=== PATIENT | female | born 1970 | race Caucasian/White ===

== ENCOUNTER 2019-01-10 21:10 | Emergency (ER) | payer SELFPAY ==
[~2019-01-10] VITALS: Ht 157.5 cm; Wt 99.8 kg
[2019-01-10 21:33] VITALS: BP 189/101
[2019-01-10] MEDS ORDERED: AMLO5TAB10 PO (21:39)
[2019-01-10] MEDS ORDERED: HYDROcodone/APAP 5/325MG 1 TAB TABLET PO ONE (22:15)
--- NOTE | 2019-01-10 23:00 | RAD ---
Right wrist x-rays 3 views HISTORY: Right wrist pain after fall. FINDINGS: No fracture or dislocation of the wrist. The soft tissues are unremarkable. 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 There is limited visualization of the distal carpal row and base of the metacarpal due to overlapping of the structures from positioning the patient's wrist in extension on the AP and oblique films which may decrease sensitivity to detect subtle pathology. IMPRESSION: No acute osseous injury of the right wrist. Right elbow AP lateral x-rays 2 views HISTORY: Right elbow pain after a fall. FINDINGS: Abnormal elevation of the fat pads consistent with a joint effusion. There is step-off of the articular cortex of the radial head suspicious for fracture. No fracture of the ulna or humerus at the elbow evident. No dislocation. IMPRESSION: Intra-articular radial head fracture. Electronically signed by: Rip oBo MD (01/10/2019 10:57 PM) [facility]
--- NOTE | 2019-01-10 23:00 | RAD ---
Right wrist x-rays 3 views HISTORY: Right wrist pain after fall. FINDINGS: No fracture or dislocation of the wrist. The soft tissues are unremarkable. 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 There is limited visualization of the distal carpal row and base of the metacarpal due to overlapping of the structures from positioning the patient's wrist in extension on the AP and oblique films which may decrease sensitivity to detect subtle pathology. IMPRESSION: No acute osseous injury of the right wrist. Right elbow AP lateral x-rays 2 views HISTORY: Right elbow pain after a fall. FINDINGS: Abnormal elevation of the fat pads consistent with a joint effusion. There is step-off of the articular cortex of the radial head suspicious for fracture. No fracture of the ulna or humerus at the elbow evident. No dislocation. IMPRESSION: Intra-articular radial head fracture. Electronically signed by: Rip Boo MD (01/10/2019 10:57 PM) [facility]
[2019-01-10] MEDS ORDERED: HYDR-3164 PO (23:43)
--- NOTE | 2019-01-10 23:43 | PHYS DOC ---
Past Medical History Past Medical History: Hypertension Past Surgical History: Tubal ligation Additional Past Surgical Histo: L KNEE, D&C Alcohol Use: Occasionally Drug Use: None Adult General Chief Complaint Chief Complaint: ELBOW PROBLEM HPI HPI Patient is a 48 year old female who presents with severe, right elbow pain after tripping on a curb and falling to the ground. Patient also injured her left wrist and left knee but those injuries are less concerning to her. She noticed increased swelling and tenderness immediately after falling. The pain is described as sharp, constant and nonradiating. She has taken one Excedrin for the pain which has not helped. She denies any trauma to the head or loss of consciousness. She has no other complaints at this time. Review of Systems Review of Systems Constitutional: Denies fever or chills Eyes: Denies redness or eye pain HENT: Denies nasal congestion or sore throat Respiratory: Denies cough or shortness of breath Cardiovascular: Denies chest pain or palpitations GI: Denies abdominal pain, nausea, or vomiting : Denies dysuria or hematuria Musculoskeletal: Severe right elbow pain. Mild left wrist, and knee pain with swelling and skin abrasions. Neurologic: Denies headache, focal weakness or sensory changes Complete systems were reviewed and found to be within normal limits, except as documented in this note. Current Medications Current Medications Current Medications Medications (Trade) Dose Ordered Sig/Mckayla Start Time Stop Time Status Last Admin Dose Admin Acetaminophen/ Hydrocodone Bitart (Lortab 5/325) 1 tab 1X ONCE 01/10/19 22:15 01/10/19 22:16 DC 01/10/19 22:48 1 TAB Allergies Allergies Allergies Coded Allergies Type Severity Reaction Last Updated Verified No Known Drug Allergies 01/10/19 No Physical Exam Physical Exam Constitutional: Well developed, well nourished, no acute distress, non-toxic appearance Eyes: PERRL, EOMI, conjunctiva normal, no discharge Abdomen: Soft, no tenderness Skin: several skin abrasions on the left wrist and left knee. Back: No tenderness, no CVA tenderness Extremities: Right elbow tenderness to palpation diffusely. Decreased right elbow ROM. sensation intact. Neurologic: Alert and oriented X 3, normal motor function, normal sensory function, no focal deficits noted Psychologic: Affect normal, judgement normal, mood normal Current Patient Data Vital Signs Vital Signs Date Time Temp Pulse Resp B/P (MAP) Pulse Ox O2 Delivery O2 Flow Rate FiO2 01/10/19 21:33 97.7 81 20 189/101 (130) 96 Room Air 97.7 EKG EKG [] Radiology/Procedures Radiology/Procedures PROCEDURE: ELBOW RIGHT 2V Right wrist x-rays 3 views HISTORY: Right wrist pain after fall. FINDINGS: No fracture or dislocation of the wrist. The soft tissues are unremarkable. 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 There is limited visualization of the distal carpal row and base of the metacarpal due to overlapping of the structures from positioning the patient's wrist in extension on the AP and oblique films which may decrease sensitivity to detect subtle pathology. IMPRESSION: No acute osseous injury of the right wrist. Right elbow AP lateral x-rays 2 views HISTORY: Right elbow pain after a fall. FINDINGS: Abnormal elevation of the fat pads consistent with a joint effusion. There is step-off of the articular cortex of the radial head suspicious for fracture. No fracture of the ulna or humerus at the elbow evident. No dislocation. IMPRESSION: Intra-articular radial head fracture. Electronically signed by: Ling Boo MD (01/10/2019 10:57 PM) [facility] DICTATED and SIGNED BY: LING BOO MD DATE: 01/10/19 2615 Course & Med Decision Making Course & Med Decision Making The patient is a 48-year-old female who presents with right elbow left wrist and left knee pain after falling while walking. X-rays of the right elbow and left wrist were obtained. Patient refused x-ray of the left knee. X-ray of the right elbow demonstrated a non-displaced, radial head fracture. The patient was placed in a splint and sling to stabilize the fracture. She was also counseled to follow up with orthopedics for potential casting. Patient prescribed 10 tabs of Hydrocodone PRN for pain control. Patient stable for discharge with outpatient follow-up with PCP. Discussed findings and plan with patient and family, who acknowledge understanding and agreement. Dragon Disclaimer Dragon Disclaimer This electronic medical record was generated, in whole or in part, using a voice recognition dictation system. Departure Departure Impression: Primary Impression: Radial head fracture, closed Disposition: 01 HOME, SELF-CARE Condition: STABLE Referrals: NO PCP (PCP) NIRANJAN MONROE MD Patient Instructions: Arm Sling Use, Rzkl-ak-Igzw, Cast or Splint Care, Glon-wi-Mogk, Radial Head Fracture, Pipi-mo-Bybn Scripts Hydrocodone/Apap 5-325 (NORCO 5-325 TABLET) 1 Each Tablet 0.5-1 TAB PO PRN Q6HRS PRN for PAIN, #10 TAB 0 Refills Prov: FRANSISCO GATICA DO 01/10/19 Problem Qualifiers Primary Impression: Radial head fracture, closed Encounter type: initial encounter Fracture alignment: nondisplaced L aterality: right Qualified Codes: S52.124A - Nondisplaced fracture of head of right radius, initial encounter for closed fracture FRANSISCO GATICA DO Jan 10, 2019 23:43
== END 2019-01-11 00:15 | disposition home or self-care (01) ==
LOC: ER 21:10
DX: S52.124A Nondisplaced fracture of head of right radius, initial encounter for closed fracture (principal); S60.811A Abrasion of right wrist, initial encounter; S80.212A Abrasion, left knee, initial encounter; Z98.51 Tubal ligation status; I10 Essential (primary) hypertension; W01.0XXA Fall on same level from slipping, tripping and stumbling without subsequent striking against object, initial encounter; Y93.89 Activity, other specified; Y92.89 Other specified places as the place of occurrence of the external cause; Y99.8 Other external cause status
CPT/HCPCS: 29105; 29125; 73070; 73110; 99284

== ENCOUNTER → 2019-02-11 | Outpatient (CLI) | payer SELFPAY ==
--- NOTE | 2019-02-10 14:10 | RAD ---
Exam performed: Right elbow 2 views. Indication: Right elbow follow-up fracture Date of Service: 02/10/2019. Comparison: X-ray right elbow from January 20, 2019 Three views right elbow findings: Healing intra-articular fracture radial head is redemonstrated with interval bridging callus. Improvement in joint effusion. No foreign body. Impression: 1. Intra-articular fracture radial head. No joint effusion is seen today. Electronically signed by: Miriam Stein MD (02/10/2019 2:07 PM) [facility]
[~2019-02-11] MED LIST: AMLO5TAB10 PO; HYDR-3164 PO
--- NOTE | 2019-02-11 09:57 | RAD ---
Exam performed: Right elbow 2 views. Indication: Right elbow follow-up fracture Date of Service: 02/10/2019. Comparison: X-ray right elbow from January 20, 2019 Three views right elbow findings: Healing intra-articular fracture radial head is redemonstrated with interval bridging callus. Improvement in joint effusion. No foreign body. Impression: 1. Intra-articular fracture radial head. No joint effusion is seen today. Electronically signed by: Miriam Stein MD (02/10/2019 2:07 PM) [facility]
== END | disposition home or self-care (01) ==
LOC: PMGORTHO 09:58
PROVIDERS: ATTEND Orthopaedic Surgery
DX: S52.121D Displaced fracture of head of right radius, subsequent encounter for closed fracture with routine healing (principal); X58.XXXD Exposure to other specified factors, subsequent encounter
CPT/HCPCS: 73070

== ENCOUNTER 2020-10-20 18:06 | Emergency (ER) | payer BC ==
[~2020-10-20] VITALS: Ht 154.9 cm; Wt 77.0 kg
[~2020-10-20 18:06] MED LIST changes: +AMLO-186 PO; -AMLO5TAB10 PO
[2020-10-20] MEDS ORDERED: IV NORMAL SALINE 1000ML BAG 1,000 ML IV ONE (19:15)
--- NOTE | 2020-10-20 19:40 | RAD ---
Exam: Chest one view INDICATION: Shaky TECHNIQUE: Frontal view of the chest Comparisons: None FINDINGS: The cardiomediastinal silhouette and pulmonary vessels are within normal limits. The lung and pleural spaces are clear. IMPRESSION: No acute cardiopulmonary process. Electronically signed by: Sobia Banegas MD (10/20/2020 7:37 PM) [facility]
[2020-10-20 19:48] LABS: BASO # 0.1 x10^3/uL (0.0-0.2); BASO % 1 % (0-3); EOS % 1 % (0-3); HEMATOCRIT 45.9 % (36.0-47.0); HEMOGLOBIN 15.8 g/dL (12.0-15.5); LYMPH % 42 % (24-48); MEAN CORPUSCULAR HEMOGLOBIN 36 pg (25-35); MEAN CORPUSCULAR HGB CONC 34 g/dL (31-37); MEAN CORPUSCULAR VOLUME 104 fL (79-100); MONO # 0.3 x10^3/uL (0.0-1.1); MONO % 7 % (0-9); NEUT # 2.4 x10^3/uL (1.8-7.7); NEUT % 49 % (31-73); PLATELET COUNT 179 x10^3/uL (140-400); RED CELL DISTRIBUTION WIDTH 12.8 % (11.5-14.5); WHITE BLOOD COUNT 4.8 x10^3/uL (4.0-11.0)
[2020-10-20 19:59] LABS: CALCIUM 8.6 mg/dL (8.5-10.1); CREATININE 0.5 mg/dL (0.6-1.0); GFR 131.1; POTASSIUM 4.1 mmol/L (3.5-5.1)
[2020-10-20 20:05] LABS: ALBUMIN 3.9 g/dL (3.4-5.0); ALBUMIN/GLOBULIN RATIO 1.1 (1.0-1.7); MAGNESIUM 2.2 mg/dL (1.8-2.4); TOTAL BILIRUBIN 0.2 mg/dL (0.2-1.0); TOTAL PROTEIN 7.3 g/dL (6.4-8.2)
--- NOTE | 2020-10-20 20:38 | PHYS DOC ---
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 Reports she drinks 2 alcoholic beverages every night, denies any tremors not drinking or history of seizures. Denies any fall or head injuries. Patient reports she cannot calm her thoughts and had left-sided chest pressure and tightness of her left hand on Sunday. Prior history of anxiety depression. Denies any suicidal homicidal ideations. Denies any IV drug use, cocaine or methamphetamine abuse. Review of Systems: Review of Systems: Constitutional: Denies fever or chills. [] Eyes: Denies change in visual acuity. [] HENT: Denies nasal congestion or sore throat. [] Respiratory: Denies cough or shortness of breath. [] Cardiovascular: Denies chest pain or edema. [] GI: Denies abdominal pain, nausea, vomiting, bloody stools or diarrhea. [] : Denies dysuria. [] Musculoskeletal: Denies back pain or joint pain. [] Integument: Denies rash. [] Neurologic: Denies headache, focal weakness or sensory changes. [] Endocrine: Denies polyuria or polydipsia. [] Lymphatic: Denies swollen glands. [] Psychiatric: Denies depression, suicidal or homicidal ideations Heart Score: C/O Chest Pain: No Risk Factors: Risk Factors: DM, Current or recent (<one month) smoker, HTN, HLP, family history of CAD, obesity. Risk Scores: Score 0 - 3: 2.5% MACE over next 6 weeks - Discharge Home Score 4 - 6: 20.3% MACE over next 6 weeks - Admit for Clinical Observation Score 7 - 10: 72.7% MACE over next 6 weeks - Early Invasive Strategies Current Medications: Current Medications Medications (Trade) Dose Ordered Sig/Mckayla Start Time Stop Time Status Last Admin Dose Admin Lorazepam (Ativan Inj) 1 mg 1X ONCE 10/20/20 20:00 10/20/20 20:01 DC 10/20/20 20:04 1 MG Sodium Chloride 1,000 ml @ 1,000 mls/hr 1X ONCE 10/20/20 19:15 10/20/20 20:14 DC 10/20/20 19:45 1,000 MLS/HR Allergies: Allergies: Allergies Coded Allergies Type Severity Reaction Last Updated Verified No Known Drug Allergies 01/10/19 No Physical Exam: PE: Constitutional: Well developed, well nourished, no acute distress, non-toxic appearance. HENT: Normocephalic, atraumatic, glassy/watery eyes, dry mucous membranes Eyes: EOMI, conjunctiva normal, no discharge. Neck: Normal range of motion, supple, Cardiovascular: S1/2 present, tachycardic on arrival Lungs & Thorax: Speaking in full sentences, bilateral equal chest rise, no tachypnea or increased work of breathing Abdomen: soft, no tenderness, Skin: Warm, dry, no erythema, no rash. [] Back: No midline tenderness, no CVA tenderness. [] Extremities: No tenderness, no cyanosis, no lower extremity edema Neurologic: Alert and oriented X 3, normal motor function, normal sensory function, no focal deficits noted. [] Psychologic: judgement normal, mood-emotional labile all goes from very anxious to tearful Current Patient Data: Labs: Laboratory Tests Test 10/20/20 19:30 White Blood Count 4.8 x10^3/uL (4.0-11.0) Red Blood Count 4.40 x10^6/uL (3.50-5.40) Hemoglobin 15.8 g/dL (12.0-15.5) H Hematocrit 45.9 % (36.0-47.0) Mean Corpuscular Volume 104 fL (79-100) H Mean Corpuscular Hemoglobin 36 pg (25-35) H Mean Corpuscular Hemoglobin Concent 34 g/dL (31-37) Red Cell Distribution Width 12.8 % (11.5-14.5) Platelet Count 179 x10^3/uL (140-400) Neutrophils (%) (Auto) 49 % (31-73) Lymphocytes (%) (Auto) 42 % (24-48) Monocytes (%) (Auto) 7 % (0-9) Eosinophils (%) (Auto) 1 % (0-3) Basophils (%) (Auto) 1 % (0-3) Neutrophils # (Auto) 2.4 x10^3/uL (1.8-7.7) Lymphocytes # (Auto) 2.0 x10^3/uL (1.0-4.8) Monocytes # (Auto) 0.3 x10^3/uL (0.0-1.1) Eosinophils # (Auto) 0.0 x10^3/uL (0.0-0.7) Basophils # (Auto) 0.1 x10^3/uL (0.0-0.2) Sodium Level 141 mmol/L (136-145) Potassium Level 4.1 mmol/L (3.5-5.1) Chloride Level 103 mmol/L (98-107) Carbon Dioxide Level 23 mmol/L (21-32) Anion Gap 15 (6-14) H Blood Urea Nitrogen 3 mg/dL (7-20) L Creatinine 0.5 mg/dL (0.6-1.0) L Estimated GFR (Cockcroft-Gault) 131.1 BUN/Creatinine Ratio 6 (6-20) Glucose Level 96 mg/dL (70-99) Calcium Level 8.6 mg/dL (8.5-10.1) Magnesium Level 2.2 mg/dL (1.8-2.4) Total Bilirubin 0.2 mg/dL (0.2-1.0) Aspartate Amino Transferase (AST) 77 U/L (15-37) H Alanine Aminotransferase (ALT) 69 U/L (14-59) H Alkaline Phosphatase 87 U/L (46-116) Total Protein 7.3 g/dL (6.4-8.2) Albumin 3.9 g/dL (3.4-5.0) Albumin/Globulin Ratio 1.1 (1.0-1.7) Lipase 177 U/L (73-393) Ethyl Alcohol Level 251 mg/dL (0-10) H Laboratory Tests 10/20/20 19:30 Laboratory Tests 10/20/20 19:30 Vital Signs: Vital Signs Date Time Temp Pulse Resp B/P (MAP) Pulse Ox O2 Delivery O2 Flow Rate FiO2 10/20/20 19:39 85 18 154/76 (102) 97 Room Air 10/20/20 19:05 98.6 98.6 EKG: EKG: Sinus rhythm 85 bpm, no axis deviation, normal intervals, T wave inversion V2 through V3, no ST elevations or ST depressions Radiology/Procedures: Radiology/Procedures: IMAGING REPORT Signed PATIENT: GEOFFREY QUACH ACCOUNT: [id number] : 1970 LOCATION: ER AGE: 49 SEX: F EXAM STATUS: REG ER ORD. PHYSICIAN: AUSTIN AREVALO DO REASON: shaky PROCEDURE: CHEST AP ONLY Exam: Chest one view INDICATION: Shaky TECHNIQUE: Frontal view of the chest Comparisons: None FINDINGS: The cardiomediastinal silhouette and pulmonary vessels are within normal limits. The lung and pleural spaces are clear. IMPRESSION: No acute cardiopulmonary process. Electronically signed by: Sobia Lake MD (10/20/2020 7:37 PM) [facility] DICTATED and SIGNED BY: SOBIA LAKE MD DATE: 10/20/20 [id number] Course & Med Decision Making: Course & Med Decision Making Pertinent Labs and Imaging studies reviewed. (See chart for details) Concern for alcohol intoxication in the setting of anxiety and increased stress. Patient instantly relieved/called with IV Ativan. Patient is not a danger to herself or others. Was advised against substance abuse and risk of addiction. Is not suicidal. Encouraged counseling and outpatient follow-up. Will discharge home with strict ED return precautions were given for syncope, chest pressure or tightness, dyspnea, SI or HI. Encouraged urgent outpatient follow-up with PMD and psychiatry as needed. Life-threatening processes were considered but are low suspicion at this time, given history, physical exam and ED workup. Pt was educated on all prescription medications and adverse effects. All patient's questions were answered and pt was stable at time of discharge. Life/limb-threatening differential includes but is not limited to, end organ damage/sepsis, trauma/abuse/neglect, neurologic deficit, alcohol/drug ingestion, toxidrome, suicidal/homicidal ideations plans or attempts, psychosis or mental illness resulting in self neglect and inability to care for self. I spoken with the patient and her caregivers. I explained the patient's condition, diagnoses and treatment plan based on the information available to me at this time. I have answered the patient and her caregiver's questions and addressed any concerns. The patient and her caregivers have a good understanding of patient's diagnosis, condition and treatment plan as can be expected at this point. Vital signs have been stable. Patient's condition is stable and appropriate for discharge from the emergency department. Patient will pursue further outpatient evaluation with primary care physician or other designated or consulting physician as outlined in the discharge instructions. The patient and/or caregivers are agreeable to this plan of care and follow-up instructions have been explained in detail. The patient and/or caregivers have received these instructions in written form and have expressed an understanding of the discharge instructions. The patient and/or caregivers are aware that any significant change of condition or worsening of symptoms should prompt immediate return to this or the closest emergency department or [facility] Disclaimer: Skye Disclaimer: This electronic medical record was generated, in whole or in part, using a voice recognition dictation system. Departure Departure Impression: Primary Impression: Anxiety Additional Impression: Alcohol intoxication Disposition: 01 DC HOME SELF CARE/HOMELESS Condition: STABLE Referrals: NO PCP (PCP) FOLLOW UP WITH FAMILY MEDICINE: Family Medicine Address: [address] [facility], [address] [address] Patient Instructions: Alcohol Intoxication, Anxiety and Panic Attacks Additional Instructions: FOLLOW UP WITH PSYCHIATRY: Dr. Usman Nicole Psychiatry Specialist [address], [place] [address] EMERGENCY DEPARTMENT GENERAL DISCHARGE INSTRUCTIONS Thank you for coming to [facility] Emergency Department (ED) today and trusting us with you care. We trust that you had a positive experience in our Emergency Department. If you wish to speak to the department management, you may call the Director at [phone]. YOUR FOLLOW UP INSTRUCTIONS ARE FOLLOWS: 1. Do you have a private Doctor? If you do not have a private doctor, please ask for a resource list of physicians or clinics that may be able to assist you with follow up care. 2. The Emergency Physicain has interpreted your x-rays. The X-Ray specialist will also review them. If there is a change in the findings, you will be notified in 48 hours when at all possible. 3. A lab test or culture has been done, your results will be reviewed and you will be notified if you need a change in treatment. ADDITIONAL INSTRUCTIONS AND INFORMATION: 1. Your care today has been supervised by a physician who is specially trained in emergency care. Many problems require more than one evaluation for a complete diagnosis and treatment. We recommend that you schedule your follow up appointment as recommended to ensure complete treatment of you illness or injury. If you are unable to obtain follow up care and continue to have a problem, or if your condition worsens, we recommend that you return to the ED. 2. We are not able to safely determine your condition over the phone nor are we able to give sound medical advice over the phone. For these safety reasons, if you call for medical advice we will ask you to come to the ED for further evaluation. 3. If you have any questions regarding these discharge instructions please call the ED at [phone]. SAFETY INFORMATION: In the interest of safety, wellness, and injury prevention; we encourage you to wear your sealbelt, if you smoke; quite smoking, and we encourage family to use a protective helmet for bicycling and other sporting events that present an increased risk for head injury. IF YOUR SYMPTOMS WORSEN OR NEW SYMPTOMS DEVELOP, OR YOU HAVE CONCERNS ABOUT YOUR CONDITION; OR IF YOUR CONDITION WORSENS WHILE YOU ARE WAITING FOR YOUR FOLLOW UP APPOINTMENT; EITHER CONTACT YOUR PRIMARY CARE DOCTOR, THE PHYSICIAN WHOSE NAME AND NUMBER YOU WERE GIVEN, OR RETURN TO THE ED IMMEDIATELY. Scripts Hydroxyzine Hcl (HYDROXYZINE HCL) 25 Mg Tablet 1 TAB PO TID PRN for ANXIETY, #20 TAB Prov: AUSTIN AREVALO DO 10/20/20 AUSTIN AREVALO DO Oct 20, 2020 20:38
[2020-10-20 20:59] LABS: BILIRUBIN,URINE NEGATIVE (NEG); CLARITY,URINE CLEAR; COLOR,URINE YELLOW; NITRITE,URINE NEGATIVE (NEG); PH,URINE 5.5 (<5.0-8.0); PROTEIN,URINE NEGATIVE (NEG-TRACE); UROBILINOGEN,URINE 0.2 mg/dL (0.2 mg/dL)
[2020-10-20 21:05] LABS: BARBITURATES NEG (NEG); BENZODIAZEPINES NEG (NEG); CANNABINOIDS NEG (NEG); COCAINE NEG (NEG); METHADONE NEG (NEG); OPIATES NEG (NEG); PHENCYCLIDINE NEG (NEG)
[2020-10-20 21:07] LABS: BACTERIA,URINE MANY /HPF (0-FEW)
[2020-10-20 21:08] LABS: RBC,URINE 0 /HPF (0-2); WBC,URINE RARE /HPF (0-4)
[2020-10-20 21:09] LABS: AMPHETAMINE/METHAMPHETAMINE NEG (NEG)
--- NOTE | 2020-10-20 21:20 | EKG ---
[facility] [address] [place] [address] Test Date: 2020-10-20 Test Time: 19:31:15 Pat Name: GEOFFREY QUACH Department: Room: Gender: F [employer]: : 1970 Requested By: AUSTIN AREVALO Order Number: [id number] Reading MD: Measurements Intervals [place] Rate: 85 P: 41 DE: 164 QRS: 24 QRSD: 76 T: 41 QT: 366 QTc: 441 Interpretive Statements SINUS RHYTHM T ABNORMALITY IN ANTEROSEPTAL LEADS ABNORMAL ECG RI6.02 No previous ECG available for comparison
[2020-10-20 22:09] VITALS: BP 141/81
[2020-10-20] MEDS ORDERED: HYDR25TA PO (22:37)
== END 2020-10-20 23:30 | disposition home or self-care (01) ==
LOC: ER 18:06
DX: F41.9 Anxiety disorder, unspecified (principal); F10.229 Alcohol dependence with intoxication, unspecified; Y90.9 Presence of alcohol in blood, level not specified; I10 Essential (primary) hypertension; Z98.51 Tubal ligation status; Z72.0 Tobacco use
CPT/HCPCS: 36415; 71045; 80053; 80307; 81001; 81025; 83690; 83735; 85025; 87086; 93005; 96361; 96374; 99285; G0480; J2060; J7030

== ENCOUNTER 2021-05-16 03:01 | Emergency (ER) | payer BC ==
[~2021-05-16] VITALS: Ht 157.5 cm; Wt 77.3 kg
[~2021-05-16 03:01] MED LIST changes: +HYDR25TA PO
[2021-05-16 03:05] VITALS: BP 144/83
--- NOTE | 2021-05-16 03:11 | PHYS DOC ---
Past Medical History Past Medical History: Hypertension Past Surgical History: Tubal ligation Additional Past Surgical Histo: L KNEE, D&C Smoking Status: Current Every Day Smoker Alcohol Use: Occasionally Drug Use: None General Adult EDM: Chief Complaint: KNEE INJURY HPI: HPI: Patient is a 50 year old female presented to the ER for evaluation of right knee pain. Patient said she fell off a mechanical bull on Sunday night, landed on her right knee, having pain since. Patient has been walking with pain. Patient denies any other injury, she is not on any blood thinner. Patient denies any hip pain, no back pain. Review of Systems: Review of Systems: Constitutional: Denies fever or chills. [] Eyes: Denies change in visual acuity. [] HENT: Denies nasal congestion or sore throat. [] Respiratory: Denies cough or shortness of breath. [] Cardiovascular: Denies chest pain or edema. [] GI: Denies abdominal pain, nausea, vomiting, bloody stools or diarrhea. [] : Denies dysuria. [] Musculoskeletal: Positive for right knee pain Integument: Denies rash. [] Neurologic: Denies headache, focal weakness or sensory changes. [] Endocrine: Denies polyuria or polydipsia. [] Lymphatic: Denies swollen glands. [] Psychiatric: Denies depression or anxiety. [] Heart Score: C/O Chest Pain: N/A Risk Factors: Risk Factors: DM, Current or recent (<one month) smoker, HTN, HLP, family history of CAD, obesity. Risk Scores: Score 0 - 3: 2.5% MACE over next 6 weeks - Discharge Home Score 4 - 6: 20.3% MACE over next 6 weeks - Admit for Clinical Observation Score 7 - 10: 72.7% MACE over next 6 weeks - Early Invasive Strategies Allergies: Allergies: Allergies Coded Allergies Type Severity Reaction Last Updated Verified No Known Drug Allergies 01/10/19 No Physical Exam: PE: Constitutional: Well developed, well nourished, no acute distress, non-toxic appearance. [] Skin: Warm, dry, no erythema, no rash. [] Back: No tenderness, no CVA tenderness. [] Extremities: Right knee is tender to palpation on the anterior part of the right knee, mild swelling, no deformity noted. Right knee joint is stable. Neurologic: Alert and oriented X 3, normal motor function, normal sensory function, no focal deficits noted. [] Psychologic: Affect normal, judgement normal, mood normal. [] EKG: EKG: [] Radiology/Procedures: Radiology/Procedures: [facility] [address] [place] [address] IMAGING REPORT Signed PATIENT: GEOFFREY QUACH ACCOUNT: [id number] : 1970 LOCATION: ER AGE: 50 SEX: F EXAM STATUS: PRE ER ORD. PHYSICIAN: MATILDE TAFOYA DO REASON: fell on her right knee 2 days ago , right knee pain PROCEDURE: KNEE RIGHT 4V XR KNEE 4 VIEWS WITH PATELLA_RT 05/16/2021 3:39 AM INDICATION: Fall on her right knee. Right knee pain COMPARISON: None available. TECHNIQUE: 4 views of the right knee are provided. FINDINGS/ IMPRESSION: Moderate knee joint effusion. No lipohemarthrosis. There is no acute fracture or dislocation. Joint spaces are maintained. Bone mineralization is within normal limits. Regional soft tissues are within normal limits. There is no soft tissue gas or osseous erosion. No radiopaque foreign body. Electronically signed by: Bharathi Stoner MD (05/16/2021 3:58 AM) [facility] DICTATED and SIGNED BY: BHARATHI STONER MD DATE: 05/16/21 [id number] 0 Course & Med Decision Making: Course & Med Decision Making Pertinent Labs and Imaging studies reviewed. (See chart for details) Patient is a 50-year-old female who present to ER for evaluation of right knee p ain after she fell 2 days ago, landed on her right knee. X-ray of the right knee did not show any fracture or dislocation. It does show some soft tissue swelling and effusion in her right knee joint. Hudson wrap was applied to her right knee, knee immobilizer was applied to her right knee. Patient will be discharged home with pain medication. Patient will be given phone number of the orthopedic doctor so she can call for follow-up this week. Patient was amenable to plan of care Skye Disclaimer: Skye Disclaimer: This electronic medical record was generated, in whole or in part, using a voice recognition dictation system. Departure Departure Impression: Primary Impression: Contusion of right knee Disposition: HOME / SELF CARE / HOMELESS Condition: STABLE Referrals: NO PCP (PCP) AXEL ARMENDARIZ DO Follow up with this orthopedic physician for outpatient evaluation of your knee this week. Patient Instructions: Contusion Scripts Hydrocodone/Acetaminophen (Hydrocodone-Acetamin 5-325 mg) 1 Each Tablet 1 EACH PO Q6HRS PRN for PAIN, #12 TAB Prov: MATILDE TAFOYA DO 05/16/21 MATILDE TAFOYA DO May 16, 2021 03:11
--- NOTE | 2021-05-16 04:01 | RAD ---
XR KNEE 4 VIEWS WITH PATELLA_RT 05/16/2021 3:39 AM INDICATION: Fall on her right knee. Right knee pain COMPARISON: None available. TECHNIQUE: 4 views of the right knee are provided. FINDINGS/ IMPRESSION: Moderate knee joint effusion. No lipohemarthrosis. There is no acute fracture or dislocation. Joint s paces are maintained. Bone mineralization is within normal limits. Regional soft tissues are within n ormal limits. There is no soft tissue gas or osseous erosion. No radiopaque foreign body. Electronically signed by: Kallie Broussard MD (05/16/2021 3:58 AM) [facility]
[2021-05-16] MEDS ORDERED: HYDROcodone/APAP 5/325MG 1 TAB TABLET PO ONE (04:15)
[2021-05-16] MEDS ORDERED: IBUPROFEN 400 MG TABLET. PO ONE (04:15)
[2021-05-16] MEDS ORDERED: HYDR-2759 PO (04:34)
== END 2021-05-16 04:51 | disposition home or self-care (01) ==
LOC: ER 03:01
DX: S80.01XA Contusion of right knee, initial encounter (principal); F17.200 Nicotine dependence, unspecified, uncomplicated; I10 Essential (primary) hypertension; V80.018A Animal-rider injured by fall from or being thrown from other animal in noncollision accident, initial encounter; Y93.89 Activity, other specified; Y92.89 Other specified places as the place of occurrence of the external cause; Y99.8 Other external cause status
CPT/HCPCS: 29505; 73564; 99283